=== PATIENT | male | born 1965 | race African-American/Black ===

== ENCOUNTER 2024-11-01 18:40 | Observation (INO) | payer MEDICARE, OTHER ==
[2024-11-01] MEDS: LACTATED RINGERS 1,000 ML IV ONE (19:25)
[2024-11-01] MEDS: methylPREDNISolone SOD SUCCI 125 MG/2 ML VIAL IV STA (19:26)
[2024-11-01] MEDS: KETOROLAC 15 MG/ML 1 ML VIAL IVP STA (19:26)
[2024-11-01] MEDS: diphenhydrAMINE 50 MG/ML 1 ML VIAL IVP STA (19:26)
[2024-11-01] MEDS: MORPHINE SULFATE 4 MG/ML SYRINGE IVP STA (19:27)
[2024-11-01] MEDS: FAMOTIDINE 20 MG/2 ML VIAL IV STA (19:27)
[2024-11-01] MEDS: ONDANSETRON 4 MG/2 ML VIAL IVP STA (19:27)
--- NOTE | 2024-11-01 19:27 | ED ---
Abdominal Pain HPI - General Chief Complaint: Abdominal Pain Stated Complaint: Abd pain Time Seen by Provider: 11/01/24 18:56 Source: patient, EMS, RN notes reviewed Mode of arrival: EMS Limitations: no limitations - History of Present Illness Initial Comments: This is a 59-year-old male who presents to the emergency department for abdominal pain. Patient is currently at [place] and has been there for the last 2 days. States that while he was eating dinner today he developed pain in the center of his abdomen. This has since persisted and he has associated nausea. He does have an extensive surgical history on his abdomen from many years ago in [facility]. He is unsure what the surgery entailed, but states that he has a history of a hernia, diverticulitis, and pancreatitis. MD Complaint: abdominal pain - Related Data Home Medications Medication Instructions Recorded Confirmed carBAMazepine [Carbatrol] 300 mg PO TID 11/01/24 11/01/24 Allergies Allergy/AdvReac Type Severity Reaction Status Date / Time iodine Allergy Rash/Hives Verified 05/15/22 13:54 shellfish derived [Shellfish] Allergy Anaphylaxis Verified 05/15/22 13:54 tomato Allergy Anaphylaxis Verified 05/15/22 13:54 lorazepam [From Ativan] AdvReac psychosis Verified 05/15/22 13:54 Review of Systems ROS Statement: Those systems with pertinent positive or pertinent negative responses have been documented in the HPI. ROS Other: All systems not noted in ROS Statement are negative. Past Medical History Past Medical History: Osteoarthritis (OA), Seizure Disorder History of Any Multi-Drug Resistant Organisms: None Reported Past Surgical History: No Surgical Hx Reported Past Psychological History: No Psychological Hx Reported Smoking Status: Current every day smoker Past Alcohol Use History: Occasional Past Drug Use History: None Reported General Exam Limitations: no limitations General appearance: alert, in no apparent distress Head exam: Present: atraumatic, normocephalic, normal inspection Respiratory exam: Present: normal lung sounds bilaterally. Absent: respiratory distress, wheezes, rales, rhonchi, stridor Cardiovascular Exam: Present: regular rate, normal rhythm GI/Abdominal exam: Present: soft, tenderness (diffuse), hernia. Absent: distended Neurological exam: Present: alert, oriented X3, CN II-XII intact Psychiatric exam: Present: normal affect, normal mood Skin exam: Present: warm, dry, intact, normal color. Absent: rash Course Vital Signs 11/01/24 11/01/24 11/01/24 18:45 19:31 20:00 Temperature 98.1 F Pulse Rate 83 85 82 Respiratory 18 18 16 Rate Blood Pressure 139/92 140/103 O2 Sat by Pulse 95 97 95 Oximetry 11/01/24 21:16 Temperature Pulse Rate 77 Respiratory 16 Rate Blood Pressure 131/81 O2 Sat by Pulse 94 L Oximetry Medical Decision Making - Medical Decision Making This is a 59 year old male who presents to the emergency department for abdominal pain. Was pt. sent in by a medical professional or institution? @ -[facility] Did you speak to anyone other than the patient for history? @ -No Did you review nursing and triage notes? @ -Yes, and I agree, it is accurate with regards to the patient's symptoms. Were old charts reviewed? @ -No Differential Diagnosis? @ -Differential Abdominal Pain Men: Appendicitis, cholecystitis, diverticulosis, ischemic bowel, pancreatitis, hepatitis, UTI, gastroenteritis, AAA, incarcerated hernia, bowel obstruction, constipation, inflammatory bowel, hepatitis, peptic ulcer disease, splenic in farction, perforated viscus, testicular torsion, this is not meant to be an all- inclusive list EKG interpreted by me (3pts min.)? @ -EKG interpreted by me demonstrating the following: Sinus rhythm. Ventricular rate 73 bpm, NJ interval 160 ms, QRS duration 94 ms, QTc 397 ms. X-rays interpreted by me (1pt min.)? @ -Not obtained CT interpreted by me (1pt min.)? @ -CT scan of the abdomen and pelvis obtained. My interpretation identifies a hernia containing bowel loops. U/S interpreted by me (1pt. min.)? @ -Not obtained What testing was considered but not performed? (CT, X-rays, U/S, labs)? Why? @ -None What meds were considered but not given? Why? @ -None Did you discuss the management of the patient with other professionals? @ -Yes, Dr. Ortiz, who accepts the patient for admission. Did you reconcile home meds? @ -Yes Was smoking cessation discussed for >3mins.? @ -No Was critical care preformed (if so, how long)? @ -No Were there social determinants of health that impacted care today? How? (Homelessness, low income, unemployed, alcoholism, drug addiction, transportation, low edu. Level, literacy, decrease access to med. care, care home, rehab)? @ -Rehab, who sent the patient in for evaluation Was there de-escalation of care discussed even if they declined? (Discuss DNR or withdrawal of care, Hospice)? @ -No What co-morbidities impacted this encounter? (DM, HTN, Smoking, COPD, CAD, Cancer, CVA, Hep., AIDS, mental health diagnosis, sleep apnea, morbid obesity)? @ -Diverticulosis, hernia, alcoholism Was patient admitted / discharged? @ -Admitted. Lab work unremarkable. CT scan of the abdomen and pelvis demonstrates a ventral wall/umbilical hernia containing loops of bowel that appeared dilated concerning for early complete obstruction versus partial obstruction. He does have an obvious protruding hernia on his abdomen. However, at the time of evaluation it was soft. Nausea was well-controlled with Zofran as well. Case discussed with general surgery who accepts the patient for admission. Will keep patient n.p.o. for the meantime. Patient admitted to surgery for ventral hernia with bowel obstruction. Consult placed for medicine for medical management. Case discussed with ED attending Dr. Bullard. Undiagnosed new problem with uncertain prognosis? @ -None Drug Therapy requiring intensive monitoring for toxicity (Heparin, Nitro, Insulin, Cardizem)? @ -None Were any procedures done? @ -None Diagnosis/symptom? @ -Ventral hernia with bowel obstruction Acute, or Chronic, or Acute on Chronic? @ -Acute Uncomplicated (without systemic symptoms) or Complicated (systemic symptoms)? @ -Complicated Side effects of treatment? @ -None Exacerbation, Progression, or Severe Exacerbation] @ -Not applicable Poses a threat to life or bodily function? @ -Yes, can lead to life-threatening infection - Lab Data Result diagrams: 11/01/24 19:18 11/01/24 19:18 Lab Results 11/01/24 11/01/24 11/01/24 Range/Units 19:18 19:18 19:18 WBC 10.00 (4.50-10.00) 10*3/uL RBC 4.54 (4.40-5.60) 10*6/uL Hgb 13.9 (13.0-17.0) g/dL Hct 42.5 (39.6-50.0) % MCV 93.6 (80.0-97.0) fL MCH 30.6 (27.0-32.0) pg MCHC 32.7 (32.0-37.0) g/dL Plt Count 224 (140-440) 10*3/uL MPV 10.0 (9.5-12.2) fL Immature Gran % (Auto) 0.6 % Neutrophils % 63.3 % Lymphocytes % 23.5 % Monocytes % 9.3 % Eosinophils % 2.8 % Basophils % 0.5 % Immature Gran # 0.06 H (0.00-0.04) 10*3/uL Neutrophils # 6.33 (1.80-7.70) 10*3/uL Lymphocytes # 2.35 (0.90-5.00) 10*3/uL Monocytes # 0.93 (0.20-1.00) 10*3/uL Eosinophils # 0.28 (0.04-0.35) 10*3/uL Basophils # 0.05 (0.00-0.10) 10*3/uL PT (10.0-12.5) sec INR (<1.2) APTT (22.0-30.0) sec Sodium 140 (137-145) mmol/L Potassium 4.7 (3.5-5.1) mmol/L Chloride 105 (98-107) mmol/L Carbon Dioxide 25 (22-30) mmol/L Anion Gap 10 mmol/L BUN 24 H (9-20) mg/dL Creatinine 0.93 (0.66-1.25) mg/dL Est GFR (CKD-EPI)AfAm >90 (>60 ml/min/1.73 sqM) Est GFR (CKD-EPI)NonAf >90 (>60 ml/min/1.73 sqM) Glucose 110 H (74-99) mg/dL Plasma Lactic Acid Harinder 1.3 (0.7-2.0) mmol/L Calcium 9.7 (8.4-10.2) mg/dL Total Bilirubin 0.3 (0.2-1.3) mg/dL AST 25 (17-59) U/L ALT 25 (4-49) U/L Alkaline Phosphatase 106 (38-126) U/L Total Protein 6.7 (6.3-8.2) g/dL Albumin 4.2 (3.5-5.0) g/dL Amylase 40 (30-110) U/L Lipase 25 (23-300) U/L 11/01/24 Range/Units 19:18 WBC (4.50-10.00) 10*3/uL RBC (4.40-5.60) 10*6/uL Hgb (13.0-17.0) g/dL Hct (39.6-50.0) % MCV (80.0-97.0) fL MCH (27.0-32.0) pg MCHC (32.0-37.0) g/dL Plt Count (140-440) 10*3/uL MPV (9.5-12.2) fL Immature Gran % (Auto) % Neutrophils % % Lymphocytes % % Monocytes % % Eosinophils % % Basophils % % Immature Gran # (0.00-0.04) 10*3/uL Neutrophils # (1.80-7.70) 10*3/uL Lymphocytes # (0.90-5.00) 10*3/uL Monocytes # (0.20-1.00) 10*3/uL Eosinophils # (0.04-0.35) 10*3/uL Basophils # (0.00-0.10) 10*3/uL PT 10.3 (10.0-12.5) sec INR 0.9 (<1.2) APTT 23.3 (22.0-30.0) sec Sodium (137-145) mmol/L Potassium (3.5-5.1) mmol/L Chloride (98-107) mmol/L Carbon Dioxide (22-30) mmol/L Anion Gap mmol/L BUN (9-20) mg/dL Creatinine (0.66-1.25) mg/dL Est GFR (CKD-EPI)AfAm (>60 ml/min/1.73 sqM) Est GFR (CKD-EPI)NonAf (>60 ml/min/1.73 sqM) Glucose (74-99) mg/dL Plasma Lactic Acid Harinder (0.7-2.0) mmol/L Calcium (8.4-10.2) mg/dL Total Bilirubin (0.2-1.3) mg/dL AST (17-59) U/L ALT (4-49) U/L Alkaline Phosphatase (38-126) U/L Total Protein (6.3-8.2) g/dL Albumin (3.5-5.0) g/dL Amylase (30-110) U/L Lipase (23-300) U/L - Radiology Data Radiology results: report reviewed, image reviewed Disposition Clinical Impression: Ventral hernia with bowel obstruction Disposition: ADMITTED IP TO THIS [facility] Referrals: Sanju Ferreira MD [Primary Care Provider] - 1-2 days
[2024-11-01 19:47] LABS: Basophils # (A) 0.05 10*3/uL (0.00-0.10); Basophils % (A) 0.5 %; Eosinophils # (A) 0.28 10*3/uL (0.04-0.35); Eosinophils % (A) 2.8 %; HCT 42.5 % (39.6-50.0); HGB 13.9 g/dL (13.0-17.0); Lymphocytes # (A) 2.35 10*3/uL (0.90-5.00); Lymphocytes % (A) 23.5 %; MCH 30.6 pg (27.0-32.0); MCHC 32.7 g/dL (32.0-37.0); MCV 93.6 fL (80.0-97.0); Monocytes # (A) 0.93 10*3/uL (0.20-1.00); Monocytes % (A) 9.3 %; Neutrophils # (A) 6.33 10*3/uL (1.80-7.70); Neutrophils % (A) 63.3 %; Platelet Count 224 10*3/uL (140-440); RBC 4.54 10*6/uL (4.40-5.60); RDW 13.2 % (11.5-14.5); WBC 10.00 10*3/uL (4.50-10.00)
[2024-11-01 19:58] LABS: ALT 25 U/L (4-49); AST 25 U/L (17-59); African American GFR (CKD) >90 (>60 ml/min/1.73 sqM); Albumin 4.2 g/dL (3.5-5.0); Alkaline Phosphatase 106 U/L (38-126); Amylase 40 U/L (30-110); Anion Gap 10 mmol/L; Blood Urea Nitrogen 24 mg/dL (9-20); Calcium 9.7 mg/dL (8.4-10.2); Carbon Dioxide 25 mmol/L (22-30); Chloride 105 mmol/L (98-107); Glucose 110 mg/dL (74-99); Lipase 25 U/L (23-300); Non-African American GFR(CKD) >90 (>60 ml/min/1.73 sqM); Potassium 4.7 mmol/L (3.5-5.1); Sodium 140 mmol/L (137-145); Total Protein 6.7 g/dL (6.3-8.2)
--- NOTE | 2024-11-01 20:22 | CT ---
EXAMINATION TYPE: CT abdomen pelvis w con DATE OF EXAM: 11/01/2024 8:05 PM COMPARISON: None CLINICAL INDICATION: Male, 59 years old with history of Abdominal pain, acute, nonlocalized; Abdomina l pain starting today, hx of pancreatitis TECHNIQUE: Axial CT abdomen pelvis w con;Sagittal and coronal reformats were created on a separate w orkstation. Contrast used:100 ml mL of Isovue 300 with IV Contrast, (none if empty) Oral contrast used: without Oral Contrast (none if empty) CT DLP: 1921.4 mGycm, Automated exposure control for dose reduction was used. FINDINGS: LOWER CHEST: Unremarkable ABDOMEN the liver is enlarged for size measuring up to 21 mm and caudocranial length. LIVER: Diffusely hypoattenuating parenchyma. GALLBLADDER AND BILE DUCTS: Unremarkable. PANCREAS: The pancreatic head/neck region consistent heterogenous appearance. Minimal soft tissue swe lling around the pancreatic head neck region. SPLEEN: Unremarkable. ADRENAL GLANDS: Unremarkable. KIDNEYS AND URETERS: No evidence of hydronephrosis or obstructing renal calculus. The ureters are unr emarkable. Duplex left renal collecting system. PELVIS BLADDER: No evidence for wall thickening or mass given limitations of exam. REPRODUCTIVE: Unremarkable. ABDOMEN & PELVIS STOMACH AND BOWEL: Obstruction from ventral hernia containing loop of small bowel with upstream dilat ion of the small bowel. PERITONEUM/RETROPERITONEUM: No evidence of pneumoperitoneum or free fluid. VASCULATURE: No evidence of aortic aneurysm. MUSCULOSKELETAL: No acute osseous abnormalities. Moderate disc degeneration changes are present throu ghout the thoracolumbar spine. Vacuum disc phenomenon seen at multiple levels. LYMPH NODES: No gross evidence for lymphadenopathy. SOFT TISSUE/ABDOMINAL WALL: Ventral wall/umbilical hernia containing loop of small bowel with upstrea m dilation measuring 17 mm at the neck.. Additional more superior ventral hernia containing fat measu ring 20 mm at the neck. IMPRESSION: 1. Ventral wall/umbilical hernia containing loop of small bowel the small bowel is dilated upstream. Findings concerning for early complete obstruction versus partial obstruction. Surgical consultation recommended 2. Additional fat-containing ventral hernia present. 3. Slightly heterogenous appearance of the pancreatic head neck region correlate with serum lipase t o exclude a component of pancreatitis. MRI pancreatic mass protocol with IV contrast recommended to e xclude underlying mass given similar slightly heterogenous appearance to the pancreatic head neck reg ion. [facility], , 11/01/2024 8:19 PM
[2024-11-01] MEDS ORDERED: ONDANSETRON 4 MG/2 ML VIAL IVP PRN (20:36)
[2024-11-01] MEDS ORDERED: NALOXONE 0.4 MG/ML 1 ML VIAL IV PRN (20:36)
[2024-11-01] MEDS ORDERED: MORPHINE SULFATE 4 MG/ML SYRINGE IV PRN (20:36)
[2024-11-01] MEDS ORDERED: ACETAMINOPHEN TAB 325 MG TAB PO PRN (20:36)
[2024-11-01 21:18] LABS: INR 0.9 (<1.2); Partial Thromboplastin Time 23.3 sec (22.0-30.0); Prothrombin Time 10.3 sec (10.0-12.5)
[2024-11-01] MEDS: SODIUM CHLORIDE 0.9% 1,000 ML IV SCH (21:24)
[2024-11-01 22:00] LABS: INR 1.0 (<1.2); Partial Thromboplastin Time 23.0 sec (22.0-30.0); Prothrombin Time 10.7 sec (10.0-12.5)
[2024-11-01] MEDS: carBAMazepine 300 MG CPMP.12HR PO SCH (22:24)
[2024-11-01 22:34] LABS: Bilirubin,Urine Negative (Negative); Blood,Urine Negative (Negative); Color,Urine Colorless; Glucose,Urine (UA) Negative (Negative); Ketones,Urine Negative (Negative); Leukocyte Esterase,Urine Negative (Negative); Nitrite,Urine Negative (Negative); PH, Urine 5.5 (5.0-8.0); Protein,Urine Negative (Negative); Specific Gravity,Urine 1.032 (1.001-1.035); Urobilinogen,Urine <2.0 mg/dL (<2.0)
[2024-11-02] MEDS: PANTOPRAZOLE 40 MG/10 ML VIAL IV SCH ×2 (08:56→22:12)
[2024-11-02] MEDS: HYDROcodone/APAP 5-325MG 1 EACH TAB PO PRN (10:06)
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
[2024-11-02] MEDS: HEPARIN SODIUM,PORCINE 5,000 UNIT/ML 1 ML VIAL SQ SCH (12:27)
[2024-11-03 07:28] VITALS: PULSE 75
--- NOTE | 2024-11-03 12:11 | P.PN ---
Progress Note - Text Progress Note Date: 11/03/24 The patient feels well. He has had a bowel movement. His abdomen is soft. On exam vital signs were stable. Abdomen soft. Chronic incisional hernia. Patient we discharged home. He will follow-up as an outpatient for repair. The patient is currently at [facility] undergoing rehab for cocaine abuse.
[2024-11-03 13:05] VITALS: BP 134/90; RESP 16; TEMP 97.9
== END 2024-11-03 14:34 | disposition home or self-care (01) ==
LOC: EC 18:40 → 4SSUR 22:15
PROVIDERS: ADMIT Surgery; ATTEND Surgery
DX: K43.0 Incisional hernia with obstruction, without gangrene (principal); K42.0 Umbilical hernia with obstruction, without gangrene; F14.10 Cocaine abuse, uncomplicated; F17.200 Nicotine dependence, unspecified, uncomplicated; Z79.899 Other long term (current) drug therapy; Z91.013 Allergy to seafood; Z88.8 Allergy status to other drugs, medicaments and biological substances; Z91.018 Allergy to other foods; Z91.048 Other nonmedicinal substance allergy status; Z87.19 Personal history of other diseases of the digestive system; Z87.828 Personal history of other (healed) physical injury and trauma; Z90.49 Acquired absence of other specified parts of digestive tract
CPT/HCPCS: 96376 ×2; 96372 ×2; 96375 ×2; 96361; 96374; 99285; 36415; 93005; 80053; 82150; 83605; 83690; 85025; 85610; 85730; 81003; 74177; G0378 ×3; J2270; J1200; J1644 ×2; J2405; J1885; Q9967; J2919; J2470 ×2; J1308